=== PATIENT | female | born 1945 | race Caucasian/White ===

== ENCOUNTER → 2023-04-18 17:53 | Outpatient (REF) | payer OTHER, SELFPAY | LOC: MRI 3T 17:53 | PROVIDERS: ATTENDING PHYSICIAN Otolaryngology; FAMILY PHYSICIAN Family Medicine | DX: H93.12 Tinnitus, left ear (principal); H90.A22 Sensorineural hearing loss, unilateral, left ear, with restricted hearing on the contralateral side | CPT/HCPCS: 70553; A9575 ==